=== PATIENT | female | born 2000 | race Hispanic/Latino ===

== ENCOUNTER 2022-05-10 16:08 | Emergency (ER) | payer OTHER ==
[~2022-05-10] VITALS: Ht 152.4 cm; Wt 99.8 kg
[2022-05-10] MEDS ORDERED: KETOROLAC 30MG VIAL (30MG/ML) ONE (18:16)
[2022-05-10] MEDS ORDERED: DEXAMETHASONE SOD PHOSPHATE 10MG/ML 1ML VIAL ONE (18:16)
[2022-05-10] MEDS ORDERED: IBUP-2070 PO (18:19)
[2022-05-10] MEDS ORDERED: AMOX500C2 PO (18:19)
[2022-05-10 18:23] VITALS: BP 137/82
[2022-05-10] MEDS ORDERED: DEXAMETHASONE SOD PHOSPHATE 4 MG/ML 1ML VIAL IM ONE (18:30)
[2022-05-10] MEDS ORDERED: KETOROLAC 30MG VIAL (30MG/ML) IM ONE (18:30)
== END 2022-05-10 18:55 | disposition home or self-care (01) ==
LOC: EDH 16:08
DX: J03.90 Acute tonsillitis, unspecified (principal); Z20.822 Contact with and (suspected) exposure to COVID-19; Z79.1 Long term (current) use of non-steroidal anti-inflammatories (NSAID); Z79.52 Long term (current) use of systemic steroids
CPT/HCPCS: 99283; 87635; 87880; 87804 ×2; C9803; J1100; J1885